=== PATIENT | male | born 1960 | race Caucasian/White ===

== ENCOUNTER → 2020-08-27 | Outpatient (CLI) | payer MEDICAID ==
--- NOTE | 2020-08-27 14:13 | US ---
EXAM DESCRIPTION: Venous,Lower Extremity RT: ULTRASOUND. CLINICAL HISTORY: Peripheral lower extremity edema. COMPARISON: None Available. TECHNIQUE: Grullon-scale and doppler sonographic evaluation of the deep venous system of the right lower extremity. FINDINGS: Doppler evaluation shows normal color flow and normal phasicity and augmentation of the right common femoral vein, right femoral vein, popliteal vein, right greater saphenous vein, junction with the CFV. Also normal color flow and normal phasicity and augmentation of the peroneal, and posterior tibial vein. The right lower extremity deep veins were completely compressible; normal occlusion with transducer pressure. Grullon-scale survey showed no echogenic thrombus within these veins. IMPRESSION: 1. Duplex ultrasound evaluation of the right lower extremity deep venous system showing no evidence of thrombosis. Electronically signed by: Jay Yanez MD 08/27/2020 2:11 PM [facility]
== END ==
LOC: US 10:26
PROVIDERS: ATTEND Family Medicine
DX: L03.115 Cellulitis of right lower limb (principal); I67.89 Other cerebrovascular disease; R26.89 Other abnormalities of gait and mobility; F03.90 Unspecified dementia, unspecified severity, without behavioral disturbance, psychotic disturbance, mood disturbance, and anxiety; R21 Rash and other nonspecific skin eruption; I10 Essential (primary) hypertension; E78.5 Hyperlipidemia, unspecified; I63.22 Cerebral infarction due to unspecified occlusion or stenosis of basilar artery; I50.40 Unspecified combined systolic (congestive) and diastolic (congestive) heart failure; M62.81 Muscle weakness (generalized); R52 Pain, unspecified; R27.8 Other lack of coordination; F41.1 Generalized anxiety disorder; R26.81 Unsteadiness on feet; Z20.7 Contact with and (suspected) exposure to pediculosis, acariasis and other infestations

== ENCOUNTER 2020-10-05 18:59 | Emergency (ER) | payer MEDICAID, OTHER ==
[2020-10-05] MEDS ORDERED: AZITHROMYCIN 250 MG TAB PO ONE (20:08)
[2020-10-05] MEDS ORDERED: DEXAMETHASONE 4 MG TAB PO ONE (20:09)
--- NOTE | 2020-10-05 20:47 | RAD ---
EXAM: Chest,1 View CLINICAL INDICATION: COVID-19 COMPARISON: There is no previous study for comparison. FINDINGS: A single view of the chest was obtained. The heart size is normal. The pulmonary vascularity is unremarkable. The lungs are clear. There is no consolidation, infiltrate, pleural effusion, or pneumothorax. IMPRESSION: No evidence of active pulmonary disease. 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
--- NOTE | 2020-10-05 21:09 | ED.PDOC ---
History of Present Illness - General Chief Complaint: General Stated Complaint: COVID + Time Seen by Provider: 10/05/20 19:51 Source: patient, [facility] records Exam Limitations: clinical condition - History of Present Illness Initial Comments: The patient is a 59-year-old male brought to the emergency room by the [facility] secondary to being coronavirus positive. The patient essentially denies any and all symptoms. He denies a runny nose or sore throat. He denies a cough. He denies shortness of breath. He denies chest pain. He denies rash. He denies any nausea vomiting or diarrhea. He denies any fever. No syncope or headache. No recent falls. He does have obvious gait instability. He does have some obvious dementia and anxiety issues that are longstanding. Severity: mild Improving Factors: nothing Worsening Factors: nothing Associated Symptoms: denies symptoms Allergies/Adverse Reactions: Allergies Codeine Allergy (Verified 10/05/20 20:30) Penicillins Allergy (Verified 10/05/20 20:30) Home Medications: Ambulatory Orders Azithromycin 500 mg PO DAILY #5 tab 10/05/20 Dexamethasone Tab [Decadron Tab] 4 mg PO DAILY #7 tab 10/05/20 Review of Systems - Review of Systems Review of Systems: 10/05/20 21:09 It is difficult to tell how reliable the patient is for review of systems secondary to his long-term diagnoses. Constitutional: States: no symptoms reported EENTM: States: no symptoms reported Respiratory: States: no symptoms reported Cardiology: States: no symptoms reported Gastrointestinal/Abdominal: States: no symptoms reported Genitourinary: States: no symptoms reported Musculoskeletal: States: no symptoms reported Skin: States: no symptoms reported Neurological: States: anxiety Endocrine: States: no symptoms reported All other Systems: No Change from Baseline Past Medical History (General) - Patient Medical History Hx Stroke: Yes Hx Hypertension: Yes - Vaccination History Hx Influenza Vaccination: Yes Hx Pneumococcal Vaccination: Yes - Social History Hx Tobacco Use: No Hx Alcohol Use: No - Activities of Daily Living [facility]Assisted Living (if applicable):: [facility] (if applicable):: [facility] Family Medical History - Family History Father Family History: Unknown Physical Exam - Physical Exam General Appearance: Alert, Comfortable, No apparent distress Eye Exam: bilateral normal Ears, Nose, Throat: hearing grossly normal, normal ENT inspection Neck: full range of motion, supple Respiratory: lungs clear, normal breath sounds, no respiratory distress, no accessory muscle use Cardiovascular/Chest: normal peripheral pulses, regular rate, rhythm, no edema Peripheral Pulses: radial,right: 2+, radial,left: 2+ Gastrointestinal/Abdominal: non tender, soft Rectal Exam: deferred Back Exam: no CVA tenderness, no vertebral tenderness Extremity: non-tender, no pedal edema, no calf tenderness, normal capillary refill 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 He does have chronic anxiety. Eye contact is poor. Skin Exam: normal color Comments: Vital Signs - 24 hr 10/05/20 10/05/20 10/05/20 19:52 20:30 21:02 Temperature 98.2 F Pulse Rate [ 92 H left] Pulse Rate [ 86 89 monitor] Respiratory 18 16 16 Rate Blood Pressure 161/91 [Left Arm] Blood Pressure 161/91 [left] O2 Sat by Pulse 97 97 97 Oximetry Progress - Progress Progress: 10/05/20 21:11 The patient is a 59-year-old male presented emergency room after testing positive for coronavirus at the [facility]. As best I can tell the patient is asymptomatic. Chest x-ray, EKG and laboratory work are reassuring. He does have a mildly low white blood cell count and a mildly elevated D-dimer. No evidence of any pulmonary embolus or DVTs clinically. The patient is not a good candidate for more aggressive anticoagulation secondary to fall risk. The patient is going to be placed on oral azithromycin and oral dexamethasone for the next week. Obviously if his clinical status is worsening in some signif icant way then a repeat evaluation would be warranted. The patient will apparently be going to the [facility] in [place]. suhas odnald [id number] 10/05/20 21:13 - Results/Orders Results/Orders: Chest x-ray shows no acute abnormality. EKG shows normal sinus rhythm at 90 bpm normal axis. Normal R wave progression. No ST segment or T wave changes indicative of acute ischemia. Normal QT interval. Laboratory Tests 10/05/20 10/05/20 10/05/20 20:00 20:00 20:00 WBC 2.5 L RBC 4.81 Hgb 14.5 Hct 42.9 MCV 89.2 MCH 30.2 MCHC 33.9 RDW 13.5 Plt Count 173 MPV 7.3 L Absolute Neuts (auto) 1.00 L Absolute Lymphs (auto) 1.10 Absolute Monos (auto) 0.40 Absolute Eos (auto) 0.00 Absolute Basos (auto) 0.00 Neutrophils % 40.1 L Lymphocytes % 41.9 Monocytes % 15.7 H Eosinophils % 1.8 Basophils % 0.5 PT 10.2 INR 1.03 PTT (SP) 32.6 H Fibrinogen 439 H D-Dimer, Quantitative 853.0 H* Sodium 139 Potassium 3.5 L Chloride 103 Carbon Dioxide 23 Anion Gap 16.5 BUN 28 H Creatinine 1.50 H BUN/Creatinine Ratio 18.7 Random Glucose 91 Serum Osmolality 282.6 Lactic Acid Calcium 8.5 Magnesium 2.2 Total Bilirubin 0.5 AST 22 ALT 11 Alkaline Phosphatase 67 LD Total 114 Creatine Kinase 203 H* CK-MB (CK-2) 0.9 CK-MB (CK-2) % Not Reportable Troponin I < 0.02 C-Reactive Protein 1.2 H B-Natriuretic Peptide < 15.0 Serum Total Protein 7.4 Albumin 4.3 Globulin 3.1 Albumin/Globulin Ratio 1.4 TSH 4.07 10/05/20 20:00 WBC RBC Hgb Hct MCV MCH MCHC RDW Plt Count MPV Absolute Neuts (auto) Absolute Lymphs (auto) Absolute Monos (auto) Absolute Eos (auto) Absolute Basos (auto) Neutrophils % Lymphocytes % Monocytes % Eosinophils % Basophils % PT INR PTT (SP) Fibrinogen D-Dimer, Quantitative Sodium Potassium Chloride Carbon Dioxide Anion Gap BUN Creatinine BUN/Creatinine Ratio Random Glucose Serum Osmolality Lactic Acid 1.0 Calcium Magnesium Total Bilirubin AST ALT Alkaline Phosphatase LD Total Creatine Kinase CK-MB (CK-2) CK-MB (CK-2) % Troponin I C-Reactive Protein B-Natriuretic Peptide Serum Total Protein Albumin Globulin Albumin/Globulin Ratio TSH Departure - Departure Clinical Impression: COVID-19 virus infection Disposition: Discharge to SNF Condition: Fair Departure Forms: ED Discharge - Pt. Copy, Patient Portal Self Enrollment Diet: regular diet Activity: increase activity as tolerated Referrals: Tan Carmichael III, MD [Primary Care Provider] - 1-2 Weeks Prescriptions: Azithromycin 500 mg PO DAILY #5 tab Dexamethasone Tab [Decadron Tab] 4 mg PO DAILY #7 tab Home Medications: Ambulatory Orders Azithromycin 500 mg PO DAILY #5 tab 10/05/20 Dexamethasone Tab [Decadron Tab] 4 mg PO DAILY #7 tab 10/05/20 Additional Instructions: The patient is a 59-year-old male presented emergency room after testing positive for coronavirus at the [facility]. As best I can tell the patient is asymptomatic. Chest x-ray, EKG and laboratory work are reassuring. He does have a mildly low white blood cell count and a mildly elevated D-dimer. No evidence of any pulmonary embolus or DVTs clinically. The patient is not a good candidate for more aggressive anticoagulation secondary to fall risk. The patient is going to be placed on oral azithromycin and oral dexamethasone for the next week. Obviously if his clinical status is worsening in some significant way then a repeat evaluation would be warranted. The patient will apparently be going to the [facility] in [place].
[2020-10-05 23:40] VITALS: BP 179/89; TEMP 97.5; O2SAT 99
== END 2020-10-05 23:30 ==
LOC: ER 18:59
DX: U07.1 COVID-19 (principal); I10 Essential (primary) hypertension; F03.90 Unspecified dementia, unspecified severity, without behavioral disturbance, psychotic disturbance, mood disturbance, and anxiety; F41.9 Anxiety disorder, unspecified; Z86.73 Personal history of transient ischemic attack (TIA), and cerebral infarction without residual deficits; Z79.899 Other long term (current) drug therapy; Z88.5 Allergy status to narcotic agent; Z88.0 Allergy status to penicillin
CPT/HCPCS: 36415; 71045; 80053; 82550; 82553; 83605; 83615; 83735; 83880; 84443; 84484; 85025; 85379; 85384; 85610; 85730; 86140; 93005; J8540; Q0144